=== PATIENT | female | born 1980 | race Caucasian/White ===

== ENCOUNTER → 2016-11-22 | Outpatient (REF) | payer OTHER ==
[2016-11-22 13:13] LABS: MEAN CORPUSCULAR HEMOGLOBIN 30.8 pg (27.0-33.0); MEAN CORPUSCULAR HGB CONC 32.7 g/dl (32.0-36.5); MEAN CORPUSCULAR VOLUME 94.2 fl (80.0-96.0); RED CELL DISTRIBUTION WIDTH 12.7 % (11.5-14.5); WHITE BLOOD COUNT 7.7 K/mm3 (4.0-10.0)
[2016-11-22 13:43] LABS: ALBUMIN 3.9 GM/DL (3.2-5.2); ALBUMIN/GLOBULIN RATIO 1.15 (1.00-1.93); ALKALINE PHOSPHATASE 20 U/L (45-117); ALT/SGPT 20 U/L (12-78); ANION GAP 7 MEQ/L (8-16); AST/SGOT 12 U/L (15-37); BILIRUBIN,TOTAL 0.6 MG/DL (0.2-1.0); BLOOD UREA NITROGEN 11 MG/DL (7-18); CALCIUM LEVEL 8.6 MG/DL (8.5-10.1); CARBON DIOXIDE LEVEL 28 MEQ/L (21-32); CHLORIDE LEVEL 106 MEQ/L (98-107); CHOLESTEROL LEVEL 181 MG/DL (<200); CREATININE FOR GFR 0.66 MG/DL (0.55-1.02); GLOMERULAR FILTRATION RATE > 60.0 (>60); GLUCOSE, FASTING 85 MG/DL (70-105); POTASSIUM SERUM 4.3 MEQ/L (3.5-5.1); SODIUM LEVEL 141 MEQ/L (136-145); TOTAL PROTEIN 7.3 GM/DL (6.4-8.2); TRIGLYCERIDES LEVEL 44 MG/DL (<150)
== END ==
LOC: M SFHCCLAY 07:51
PROVIDERS: ATTEND Nurse Practitioner
DX: N92.0 Excessive and frequent menstruation with regular cycle (principal); F41.1 Generalized anxiety disorder; Z82.49 Family history of ischemic heart disease and other diseases of the circulatory system

== ENCOUNTER → 2017-03-11 | Outpatient (REF) | payer OTHER ==
[~2017-03-11] MED LIST: ACYC200C8 PO; METR1TAB66 PO; NITR100C2
== END ==
LOC: M LAB REF 09:56
PROVIDERS: ATTEND Physician Assistant Medical
DX: R39.0 Extravasation of urine (principal); R30.0 Dysuria

== ENCOUNTER 2017-03-14 17:39 | Emergency (ER) | payer OTHER ==
[~2017-03-14] VITALS: Ht 162.6 cm; Wt 59.5 kg
[2017-03-14] MEDS ORDERED: NITR100C2 (17:48)
[2017-03-14] MEDS ORDERED: ACYC200C8 PO (19:54)
[2017-03-14] MEDS ORDERED: METR1TAB66 PO (19:54)
[2017-03-14 20:10] VITALS: BP 135/74
== END 2017-03-14 20:11 | disposition home or self-care (01) ==
LOC: M ED 17:39
DX: O23.591 Infection of other part of genital tract in pregnancy, first trimester (principal); O98.319 Other infections with a predominantly sexual mode of transmission complicating pregnancy, unspecified trimester; A60.09 Herpesviral infection of other urogenital tract; Z3A.01 Less than 8 weeks gestation of pregnancy

== ENCOUNTER → 2017-04-05 | Outpatient (CLI) | payer OTHER ==
[2017-04-05 19:50] LABS: BASO % 0.5 % (0.0-1.0); EOS # 0.1 K/mm3 (0.0-0.50); EOS % 0.7 % (0.0-3.0); LARGE UNSTAINED CELL # 0.1 K/mm3 (0.0-0.4); LYMPH # 1.4 K/mm3 (1.5-4.5); MEAN CORPUSCULAR HEMOGLOBIN 32.6 pg (27.0-33.0); MEAN CORPUSCULAR HGB CONC 34.6 g/dl (32.0-36.5); MEAN CORPUSCULAR VOLUME 94.3 fl (80.0-96.0); MONO # 0.4 K/mm3 (0.0-0.8); MONO % 4.1 % (0.0-5.0); NEUTROPHILS # 8.6 K/mm3 (1.8-7.7); NEUTROPHILS % 81.8 % (36.0-66.0); PLATELET COUNT, AUTOMATED 336 k/mm3 (150-450); RED CELL DISTRIBUTION WIDTH 12.8 % (11.5-14.5)
[2017-04-06 08:19] LABS: WHITE BLOOD COUNT 10.5 K/mm3 (4.0-10.0)
[2017-04-06 12:50] LABS: HBsAg Prenatal NEGATIVE (NEGATIVE)
== END ==
LOC: M SMT 13:30
PROVIDERS: ATTEND Advanced Practice Midwife
DX: Z34.81 Encounter for supervision of other normal pregnancy, first trimester (principal)

== ENCOUNTER → 2017-04-16 | Outpatient (REF) | payer OTHER | LOC: M LAB REF 13:13 | PROVIDERS: ATTEND Advanced Practice Midwife | DX: Z34.81 Encounter for supervision of other normal pregnancy, first trimester (principal) ==

== ENCOUNTER → 2017-06-20 | Outpatient (CLI) | payer OTHER ==
--- NOTE | 2017-06-20 09:41 | REP ---
Clinical: Anatomical evaluation. Comparison: None . Findings: Examination demonstrates a single live intrauterine in variable presentation. motion is identified by technologist. Placenta is noted posterior, grade 0 and placenta previa is noted. Cervix measures 3.7 cm in length and appears closed. No evidence for nuchal cord. Gestational age by current measurements 18 weeks 6 days with CHINTAN 11/15/2017 . FHR equals 141 beats per minute. BPD 4.2 cm 18 weeks 5 days HC 16.1 cm 19 weeks 0 days AC 13.6 cm 19 weeks 0 days FL 3.0 cm 19 weeks 1 day HL 2.8 cm 19 weeks 0 days HC/AC ratio 1.19 Estimated weight 274 grams ( 56 percentile). Anatomical assessment demonstrates normal structures including cranium, cavum, cerebellum/posterior fossa, nose and lips, lungs, four-chamber heart/ left ventricular outflow tract, diaphragm, stomach, cord insertion/three-vessel cord, kidneys/bladder, spine, and extremities. Small bilateral choroid plexus cysts are identified. Limited evaluation of the facial profile and right cardiac ventricular outflow tract noted. Impression: 1. Single live intrauterine in variable presentation. 2. Posterior placenta with placenta previa. 3. Anatomical limitations as described above may warrant reevaluation and follow-up. Signed by Avinash Barrera MD 06/20/2017 09:33 A
== END ==
LOC: M SMT 07:57
PROVIDERS: ATTEND Advanced Practice Midwife
DX: Z34.82 Encounter for supervision of other normal pregnancy, second trimester (principal)

== ENCOUNTER → 2017-07-23 | Outpatient (CLI) | payer OTHER ==
--- NOTE | 2017-07-24 03:19 | REP ---
Clinical: Anatomical evaluation. Comparison: 06/20/2017 . Findings: Examination demonstrates a single live intrauterine in variable presentation. motion is identified by technologist. Placenta is noted posteriorly and grade one without evidence for placenta previa or abruption. Placenta tip identified 3.8 cm from the closed internal os. Amniotic fluid volume is normal. Cervix measures 4.5 cm in length and appears closed. No evidence for nuchal cord. Gestational age by LMP 23 weeks 4 days with CHINTAN 11/16/1979 . Gestational age by current measurements 23 weeks 5 days with CHINTAN 11/14/2017 . FHR equals 139 beats per minute. Estimated weight 677 grams ( 65th percentile). Anatomical assessment demonstrates normal structures including cranium, choroid plexus, cavum, cerebellum/posterior fossa, facial features, lungs, four-chamber heart/ventricular outflow tracts, diaphragm, stomach, cord insertion/three-vessel cord, kidneys/bladder, spine, and extremities. Previously noted choroid cysts have resolved. Impression: Appropriate interval growth. In conjunction with prior examination anatomical assessment is complete and normal. Signed by Avinash Barrera MD 07/24/2017 12:11 A
== END ==
LOC: M SMT 14:32
PROVIDERS: ATTEND Specialist
DX: Z36.2 Encounter for other antenatal screening follow-up (principal); Z34.82 Encounter for supervision of other normal pregnancy, second trimester; Z3A.24 24 weeks gestation of pregnancy

== ENCOUNTER → 2017-08-01 | Outpatient (CLI) | payer OTHER ==
[2017-08-01 19:57] LABS: BASO # 0.1 10^3/uL (0.0-0.2); BASO % 0.4 % (0.0-1.0); EOS # 0.1 10^3/uL (0.0-0.50); IMMATURE GRANULOCYTE # 0.2 10^3/uL (0-0); IMMATURE GRANULOCYTE % 1.1 % (0-0); LYMPH # 1.8 10^3/uL (1.5-4.5); LYMPH % 13.1 % (24.0-44.0); MEAN CORPUSCULAR HEMOGLOBIN 31.7 pg (27.0-33.0); MEAN CORPUSCULAR HGB CONC 32.9 g/dl (32.0-36.5); MEAN CORPUSCULAR VOLUME 96.3 fl (80.0-96.0); MONO # 0.7 10^3/uL (0.0-0.8); MONO % 5.1 % (0.0-5.0); NEUTROPHILS # 11.1 10^3/uL (1.8-7.7); NEUTROPHILS % 79.3 % (36.0-66.0); PLATELET COUNT, AUTOMATED 336 10^3/uL (150-450); RED CELL DISTRIBUTION WIDTH 13.1 % (11.5-14.5)
[2017-08-02 08:39] LABS: TYPE AND SCREEN 1 1
== END ==
LOC: M WUC 15:07
DX: Z34.83 Encounter for supervision of other normal pregnancy, third trimester (principal)
CPT/HCPCS: 82950

== ENCOUNTER → 2017-10-16 | Outpatient (REF) | payer OTHER | LOC: M LAB REF 11:29 | DX: Z34.83 Encounter for supervision of other normal pregnancy, third trimester (principal) ==

== ENCOUNTER 2017-11-17 14:46 | Inpatient (IN) | payer OTHER, MEDICAID ==
[2017-11-17] MEDS ORDERED: LR 1,000 ML IV ×2 (16:24→19:42)
[2017-11-17] MEDS: PENICILLIN G POTASSIUM IV 5 MU in D5W MINI-BAG PLUS 100 ML IV (16:44)
[2017-11-17] MEDS: LACTATED RINGER'S 1000 ML IV (16:45)
[2017-11-17 16:49] LABS: HEMATOCRIT 35.2 % (36.0-47.0); HEMOGLOBIN 12.2 g/dl (12.0-15.5); MEAN CORPUSCULAR HEMOGLOBIN 32.2 pg (27.0-33.0); MEAN CORPUSCULAR HGB CONC 34.7 g/dl (32.0-36.5); MEAN CORPUSCULAR VOLUME 92.9 fl (80.0-96.0); PLATELET COUNT, AUTOMATED 270 10^3/uL (150-450); RED BLOOD COUNT 3.79 10^6/uL (4.00-5.40); WHITE BLOOD COUNT 18.7 10^3/uL (4.0-10.0)
[2017-11-17] MEDS ORDERED: OXYTOCIN DRIP 30 UNITS in APPROPRIATE DILUENT 1 EA IV (19:05)
[2017-11-17] MEDS: OXYTOCIN DRIP 30 UNITS in APPROPRIATE DILUENT 1 EA IV (19:42)
[2017-11-17] MEDS ORDERED: DIBUCAINE 1% OINTMENT 30GM TOP (19:45)
[2017-11-17] MEDS ORDERED: ONDANSETRON 4MG/2ML VIAL (J2405) IV (19:45)
[2017-11-17] MEDS ORDERED: PROMETHAZINE 25 MG TAB PO (19:45)
[2017-11-17] MEDS ORDERED: MEASLES,MUMPS,RUBELLA VACCINE INJ (MMR-II) (90707) SC (19:45)
[2017-11-17] MEDS ORDERED: IBUPROFEN 800 MG TAB PO (19:45)
[2017-11-17] MEDS ORDERED: ACETAMINOPHEN 500 MG TAB PO (19:45)
[2017-11-17] MEDS: LIDOCAINE 1% MDV 20ML VIAL INFIL (20:25)
[2017-11-17] MEDS ORDERED: PENICILLIN G POTASSIUM IV 2.5 MU in APPROPRIATE DILUENT 1 EA IV (20:45)
[2017-11-18] MEDS: PRENATAL VITAMINS CHEWABLE TABLET PO (08:33)
[2017-11-18] MEDS: DOCUSATE SODIUM 100 MG CAP PO (21:26)
[2017-11-19] MEDS: PRENATAL VITAMINS CHEWABLE TABLET PO (08:32)
[2017-11-19 10:27] LABS: FETAL SCREEN PROF. 1 1
[2017-11-19] MEDS: RHOGAM 300 MCG (1500 IU) INJ (J2790) IM (10:44)
== END 2017-11-19 13:45 | disposition home or self-care (01) | DRG 775 ==
LOC: M LDO 14:46 → M LDI 15:58 → M OBS 21:56
PROVIDERS: Obstetrics & Gynecology; Pediatrics
PROC: 10E0XZZ Delivery of Products of Conception, External Approach (ICD-10-PCS; principal; 2017-11-17)
PROC: 0HQ9XZZ Repair Perineum Skin, External Approach (ICD-10-PCS; 2017-11-17)
PROC: 30233S1 Transfusion of Nonautologous Globulin into Peripheral Vein, Percutaneous Approach (ICD-10-PCS; 2017-11-19)
DX: O48.0 Post-term pregnancy (principal); Z37.0 Single live birth; Z3A.40 40 weeks gestation of pregnancy; O99.824 Streptococcus B carrier state complicating childbirth; Z88.8 Allergy status to other drugs, medicaments and biological substances; O77.0 Labor and delivery complicated by meconium in amniotic fluid; O70.0 First degree perineal laceration during delivery

== ENCOUNTER → 2020-05-20 | Outpatient (REF) | payer OTHER ==
[~2020-05-20] MED LIST changes: +IBUP-1114 PO; +MAPA500T2 PO; +METR-265 PO; -METR1TAB66 PO; +PRENTAB9 PO
[2020-05-20 17:51] LABS: HEMATOCRIT 34.8 % (36.0-47.0); HEMOGLOBIN 11.6 g/dl (12.0-15.5); MEAN CORPUSCULAR HEMOGLOBIN 31.4 pg (27.0-33.0); MEAN CORPUSCULAR HGB CONC 33.3 g/dl (32.0-36.5); MEAN CORPUSCULAR VOLUME 94.3 fl (80.0-96.0); PLATELET COUNT, AUTOMATED 343 10^3/uL (150-450); RED BLOOD COUNT 3.69 10^6/uL (4.00-5.40)
[2020-05-20 19:10] LABS: HEPATITIS C VIRUS ABY INDEX 0.1 INDEX (<0.8); HIV 1&2 SCREEN CENTAUR NEGATIVE (NEGATIVE)
== END ==
LOC: M PLALAB 14:47
PROVIDERS: ATTEND Obstetrics & Gynecology
DX: O09.529 Supervision of elderly multigravida, unspecified trimester (principal); Z3A.00 Weeks of gestation of pregnancy not specified

== ENCOUNTER → 2020-05-20 | Outpatient (CLI) | payer OTHER | LOC: M PLALAB 14:57 | PROVIDERS: ATTEND Obstetrics & Gynecology | DX: O09.521 Supervision of elderly multigravida, first trimester (principal) ==

== ENCOUNTER → 2020-07-14 | Outpatient (CLI) | payer OTHER ==
--- NOTE | 2020-07-14 16:39 | REP ---
INDICATION: ANATOMY. Supervision of COMPARISON: None. TECHNIQUE: Transabdominal scanning. FINDINGS: Scanning through the gravid uterus demonstrates a viable single intrauterine gestation in transverse, head to the maternal left lie. motion is observed and heart rate is recorded at 147 beats per minute. A anterior placenta is seen, grade 0, without evidence of placenta previa. Amniotic fluid is subjectively normal. Closed cervical length is measured at 5.1 cm transabdominally. No extrauterine abnormality is observed. Three-vessel cord. The inferior edge of the placenta is 3.9 cm from the internal cervical os on transabdominal imaging. No anomaly is seen. The following anatomic structures are identified and felt to be sonographically unremarkable: cranium, choroid plexus, cavum, cerebellum and posterior fossa, face and profile, lungs, left and right ventricular outflow tract views, diaphragm, left-sided stomach, abdominal wall cord insertion, three-vessel umbilical cord, kidneys and bladder, spine, and upper and lower extremities. Four-chamber heart view is less than optimally achieved due to position. Biometry chart: BPD 4.6 cm, 19 weeks 6 days Head circumference 16.8 cm, 19 weeks 3 days Abdominal circumference 14.7 cm, 20 weeks 0 days Femur length 3.1 cm, 19 weeks 5 days Humeral length 3.0 cm, 20 weeks 0 days HC AC ratio normal 1.14 Cephalic index normal 0.76 Estimated weight 315 g, 0 lb old garcia oz, 76 percentile for 19 weeks 2 days IMPRESSION: Viable single intrauterine gestation at 19 weeks 6 days by today's composite sonographic criteria. CHINTAN by today's sonography December 02, 2020. No complication identified. anatomy survey complete except for less than optimally achieved 4 chamber heart view. <Electronically signed by Suraj Salmon > 07/14/20 [id number]
== END ==
LOC: M WHC 13:12
PROVIDERS: ATTEND Obstetrics & Gynecology
DX: Z34.90 Encounter for supervision of normal pregnancy, unspecified, unspecified trimester (principal); Z3A.19 19 weeks gestation of pregnancy

== ENCOUNTER → 2020-07-14 | Outpatient (REF) | payer OTHER | LOC: M SFHCWAGY 16:58 | PROVIDERS: ATTEND Obstetrics & Gynecology | DX: O09.522 Supervision of elderly multigravida, second trimester (principal) ==

== ENCOUNTER → 2020-08-11 | Outpatient (REF) | payer OTHER ==
[2020-08-11 17:39] LABS: HEMATOCRIT 35.1 % (36.0-47.0); HEMOGLOBIN 11.5 g/dl (12.0-15.5); MEAN CORPUSCULAR HEMOGLOBIN 32.2 pg (27.0-33.0); MEAN CORPUSCULAR HGB CONC 32.8 g/dl (32.0-36.5); MEAN CORPUSCULAR VOLUME 98.3 fl (80.0-96.0); PLATELET COUNT, AUTOMATED 305 10^3/uL (150-450); RED BLOOD COUNT 3.57 10^6/uL (4.00-5.40); WHITE BLOOD COUNT 13.2 10^3/uL (4.0-10.0)
== END ==
LOC: M PLALAB 13:53
PROVIDERS: ATTEND Obstetrics & Gynecology
DX: O09.522 Supervision of elderly multigravida, second trimester (principal); Z3A.23 23 weeks gestation of pregnancy
CPT/HCPCS: 36415; 82950; 85027; 86850; 86900; 86901; 87088; 87186; J2790

== ENCOUNTER → 2020-08-11 | Outpatient (CLI) | payer OTHER ==
--- NOTE | 2020-08-11 14:53 | REP ---
INDICATION: F/U ANATOMY COMPARISON: 07/14/2020 TECHNIQUE: Transabdominal obstetrical ultrasound with color Doppler evaluation. FINDINGS: Examination demonstrates a single live intrauterine in variable presentation. motion is identified by technologist. Placenta is noted anterior and grade 1 without evidence for placenta previa or abruption. Amniotic fluid volume is normal. Cervix measures 3.6 cm in length and appears closed.. Gestational age by LMP 23 weeks 2 days with CHINTAN 12/06/2020. Gestational age by current measurements 23 weeks 4 days with CHINTAN 12/04/2020. FHR equals 133 beats per minute. Estimated weight 624 grams (64thpercentile). Anatomical assessment demonstrates normal structures including cranium, facial features, cardiac ventricular outflow tracts, diaphragm/stomach, bilateral kidneys/bladder, and three-vessel cord/abdominal wall. IMPRESSION: Single live intrauterine in variable presentation demonstrating appropriate estimated weight and growth. Limited evaluation of the four-chamber heart is again noted with subtle small echogenic focus in the ventricle suggesting chordae tendineae. <Electronically signed by Avinash Barrera > 08/11/20 [id number]
== END ==
LOC: M WHC 13:56
PROVIDERS: ATTEND Obstetrics & Gynecology
DX: Z36.9 Encounter for antenatal screening, unspecified (principal); Z3A.23 23 weeks gestation of pregnancy

== ENCOUNTER → 2020-10-13 | Outpatient (CLI) | payer OTHER ==
--- NOTE | 2020-10-13 13:46 | REP ---
INDICATION: GROWTH/ELDERLY MULTIGRAVIDA COMPARISON: 08/11/2020 TECHNIQUE: Transabdominal obstetrical ultrasound with color Doppler evaluation. FINDINGS: Examination demonstrates a single live intrauterine in cephalic presentation. motion is identified by technologist. Placenta is noted anterior and grade 2 without evidence for placenta previa or abruption. Amniotic fluid volume is normal. Cervix measures 3.1 cm in length and appears closed.. Gestational age by LMP and 1st ultrasound 32 weeks 2 days with CHINTAN 12/06/2020. Gestational age by current measurements 32 weeks 5 days with CHINTAN 12/03/2020. FHR equals 153 beats per minute. Estimated weight 1980 grams (45thpercentile). AUSTIN: 16.4 cm (8.5-24.3) IMPRESSION: Advanced gestation in cephalic presentation demonstrating appropriate estimated weight and growth. <Electronically signed by Avinash Barrera > 10/13/20 [id number]
== END ==
LOC: M WHC 12:21
PROVIDERS: ATTEND Advanced Practice Midwife
DX: O09.523 Supervision of elderly multigravida, third trimester (principal); Z3A.32 32 weeks gestation of pregnancy

== ENCOUNTER → 2020-11-09 | Outpatient (REF) | payer OTHER | LOC: M SFHCWAGY 16:53 | PROVIDERS: ATTEND Advanced Practice Midwife | DX: Z36.85 Encounter for antenatal screening for Streptococcus B (principal); Z3A.36 36 weeks gestation of pregnancy ==

== ENCOUNTER → 2020-11-17 | Outpatient (CLI) | payer OTHER ==
[~2020-11-17] VITALS: Ht 160 cm; Wt 88.4 kg
--- NOTE | 2020-11-17 12:30 | IPN ---
PROGRESS NOTE DATE: 11/17/2020 SUBJECTIVE: Sangeetha is a 40-year-old 3 para 2-0-0-2. She is 37 and 2/7th weeks with an EDC of 12/06/2020 based on first trimester ultrasound. She presents to Labor and Delivery today with a report of gush of fluid last evening around 1700. She has continued any continued leakage of fluid, vaginal bleeding, and regular painful contractions. The fetus has been active. [facility] care was [facility] at [facility] in the first trimester. Her course was complicated by advanced maternal age. Her course has been appropriate throughout. OBSTETRIC HISTORY: In 07/12, a 40 week gestation, 6 pound, 7 ounce male, vaginal delivery, 11/21, 40 weeks and 3 days, 7 pound, 10 ounce female, vaginal delivery. PAST MEDICAL HISTORY: Scoliosis, back pain, childhood varicella. PAST SURGICAL HISTORY: Varicose veins in 2008 and again in 2016. FAMILY HISTORY: Heart disease, CVA. SOCIAL HISTORY: She is a former smoker. It has been 5 to 10 years, essentially last using tobacco. She denies alcohol and drug use. Denies any history of sexually transmitted infections. She denies a history of abuse. She is single, however the father of the baby is at bedside. CURRENT MEDICATIONS: vitamin. ALLERGIES: Benadryl. OBJECTIVE: She is alert and oriented x3. She is no apparent distress. heart rate is 135 with moderate variability, positive accelerations, negative decelerations, contraction occasional. Sterile speculum exam: Negative Valsalva, negative pooling, negative Nitrazine and negative fern. Sterile vaginal exam: Fingertip dilated, thick ballottable station. Temperature 98, pulse 90, respirations 16 and blood pressure is 127/64. ASSESSMENT: Intrauterine at 37 and 2/7th weeks. heart rate Category 1, not ruptured, not in labor. PLAN: Discharge the patient to home. I did review signs and symptoms of active labor, spontaneous rupture of membranes, kick counts and other danger signs to report. I reviewed access to care. She is instructed to keep her growth ultrasound that she has scheduled this afternoon and to reschedule her appointment for early next week. I have answered all of her and her partner's questions and they do request discharge home.
== END ==
LOC: M LDO 10:01
PROVIDERS: ATTEND Advanced Practice Midwife
DX: O47.1 False labor at or after 37 completed weeks of gestation (principal); Z3A.37 37 weeks gestation of pregnancy; O09.523 Supervision of elderly multigravida, third trimester
CPT/HCPCS: 59025; G0378; G0463

== ENCOUNTER → 2020-11-17 | Outpatient (CLI) | payer OTHER ==
--- NOTE | 2020-11-17 15:14 | REP ---
INDICATION: 36 WEEKS GESTATION,GROWTH. COMPARISON: 10/13/2020. TECHNIQUE: Real-time sonographic evaluation of the gravid uterus performed. FINDINGS: Estimated gestational age is37 weeks 2 days, EDC 12/06/2020. Today's measurements indicate appropriate growth. Presentation: Cephalic Placenta anterior, grade 2, without evidence of placenta previa. heart rate is recorded at 134 beats per minute. Amniotic fluid is subjectively normal. AUSTIN 14.7, normal range 7.4-24.3. Closed cervical length is measured at 3.3 cm. Biometry chart: BPD: 91 mm, 36 weeks 6 days, 44th percentile. HC: 332 mm, 37 weeks 6 days, 60th percentile AC: 329 mm, 36 weeks 6 days, 43rd percentile Femur length: 72 mm, 36 weeks 6 days, 44th percentile HC to AC ratio: 1.01, normal range 0.91-1.10. Estimated weight: 3081g, 49th percentile. IMPRESSION: Viable single intrauterine gestation as above. <Electronically signed by James Gavin > 11/17/20 [id number]
== END ==
LOC: M WHC 12:26
PROVIDERS: ATTEND Advanced Practice Midwife
DX: Z36.2 Encounter for other antenatal screening follow-up (principal); Z3A.37 37 weeks gestation of pregnancy

== ENCOUNTER 2020-12-11 18:41 | Inpatient (IN) | payer OTHER ==
[~2020-12-11] VITALS: Ht 160 cm; Wt 91.4 kg
[2020-12-11 19:03] VITALS: BP 119/69
--- NOTE | 2020-12-11 20:53 | HPEPDOC ---
Obstetrical History & Physical General Date of Admission December 11, 2020 at 20:44 History of Present Illness Patient is a 40-year-old 3 para 2 presents at 40 weeks 5 days estimated gestational age with complaints of fever, malaise and body aches. She reports a fever 101.2 earlier this afternoon. She denies any sick contacts. Patient was scheduled for induction of labor for postdates tomorrow. course only remarkable for advanced maternal age and she has been receiving antepartum testing weekly Chief Complaint: Induction of labor Information Provided By: Patient Age: 40 : 3 Livin Care Care: Good Care Dating Final EDC: December 06, 2020 Final EDC by: LMP EGA at Admission: 40 Past Medical History Past Obstetrical History #1: Past Obstetrical History: Multigravida Date of Delivery: Jul 08, 2007 Gestation: 40 Type of Delivery: Spontaneous Vaginal Del. Sex of : Male Complications: No Past Obstetrical History #2: Past Obstetrical History: Multigravida Date of Delivery: Oct 09, 2017 Type of Delivery: Spontaneous Vaginal Del. 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 BREAST: . ABDOMEN: Gravid and non-tender to touch. FETUS: Is vertex (VTX) by sterile vaginal examination (SVE), fetus is vertex (VTX) by Sandor. HEART RATE: Regular rate and rhythm. LUNGS: Clear to auscultation (CTA). Vital Signs/I&O Vital Signs Date Time Temp Pulse Resp B/P (MAP) Pulse Ox O2 Delivery O2 Flow Rate FiO2 12/11/20 19:03 98.8 102 18 119/69 (86) Laboratory Data 24H LABS Laboratory Tests 2 12/11/20 18:59: Coronavirus (COVID-19)(PCR) POSITIVEA 12/11/20 20:46: Serology Scanned Report Hepatitis B Testing Pertinent Laboratoy Data Blood Type: A- RBC Antibody Screen: Negative HIV: Negative Hepatitis B: Negative Hepatitis C: Negative Rapid Plasma Reagin: Nonreactive Rubella: Immune Chlamydia/Gonorrhea: Negative Group B Streptococcus: Negative Glucose Tolerance Test: 86 Anatomy Ultrasound Normal Anatomy: Yes Placenta Previa: No Vaginal Examination Dilation: 2cm Effacement: 50% Station: -3 Cervical Consistency: Soft Cervical Position: Anterior Presentation: Cephalic presentation Assessment Variability: Moderate Decelerations: None Tocometer Contractions: Yes Frequency: irregular Assessment/Plan Assessment 40-year-old 3 para 2 at 40 weeks 5 days estimated gestational age presents with fever and chills positive for COVID-19 Reassuring status Advanced maternal age Plan Admit and orient. Chemical Applicator and consent. Group B Streptococcus (GBS) negative. Labs and intravenous (IV) per unit protocol. Counseled on Pitocin and induction of labor (IOL). Anticipate normal spontaneous delivery (). C-S as appropriate. Labor and Delivery Counseling Patient has been thoroughly counseled in regards to induction labor. I've discu ssed medications as well as procedures performed in labor and delivery. She has been verbally consented for emergency surgery blood products anesthesia and desires to proceed with induction. Plans to initiate her induction labor with 50 g oral misoprostol. ZENIA SHARMA MD. December 11, 2020 20:53
[2020-12-11 20:58] VITALS: BP 122/70
[2020-12-11] MEDS ORDERED: miSOPROStol 50MCG 1/2 TABLET PO SCH (21:00)
[2020-12-11 21:21] LABS: HEMOGLOBIN 10.8 g/dl (12.0-15.5); MEAN CORPUSCULAR HEMOGLOBIN 32.5 pg (27.0-33.0); MEAN CORPUSCULAR HGB CONC 34.8 g/dl (32.0-36.5); MEAN CORPUSCULAR VOLUME 93.4 fl (80.0-96.0); PLATELET COUNT, AUTOMATED 231 10^3/uL (150-450); RED BLOOD COUNT 3.32 10^6/uL (4.00-5.40); WHITE BLOOD COUNT 11.4 10^3/uL (4.0-10.0)
[2020-12-11 21:28] VITALS: BP 119/60
[2020-12-11 22:26] VITALS: BP 128/68
[2020-12-11] MEDS ORDERED: BUTORPHANOL 2 MG/ML INJ (J0595) IV ONE (23:20)
[2020-12-11] MEDS ORDERED: PROMETHAZINE INJ 25 MG/ML VIAL (J2550) IV PRN (23:20)
[2020-12-11 23:29] VITALS: BP 100/60
[2020-12-11 23:48] VITALS: BP 104/55
[2020-12-12] VITALS (12 sets, daily range): BP systolic 93–121; BP diastolic 53–67
[2020-12-12] MEDS ORDERED: FENTANYL 2MCG/ML ROPIVACAINE 0.2% IN 0.9% NACL 100ML IVBAG As Ordered ONE (00:56)
[2020-12-12] MEDS ORDERED: OXYTOCIN 30 UNITS IN 0.9% NaCl 500ML IV BAG (J2590) As Ordered ONE (01:19)
[2020-12-12] MEDS ORDERED: DIBUCAINE 1% OINTMENT 30GM TOP PRN (02:35)
[2020-12-12] MEDS ORDERED: MOM 30ML SUSPENSION UDC PO PRN (02:35)
[2020-12-12] MEDS ORDERED: METHYLERGONOVINE MALEATE 0.2 MG TAB PO PRN (02:35)
[2020-12-12] MEDS ORDERED: MEASLES,MUMPS,RUBELLA VACCINE INJ (MMR-II) (90707) SC SCH (02:35)
[2020-12-12] MEDS ORDERED: ACETAMINOPHEN 500 MG TAB PO PRN (02:35)
[2020-12-12] MEDS ORDERED: ACETAMINOPHEN TAB 650MG DOSE (2X325MG) PO PRN (02:35)
[2020-12-12] MEDS ORDERED: DOCUSATE SODIUM 100MG CAPSULE PO PRN (02:35)
[2020-12-12] MEDS ORDERED: OXYTOCIN DRIP 30 UNITS in IV 1 EA IV SCH (02:35)
[2020-12-12] MEDS ORDERED: ANUSOL HC CREAM 30GM TOP PRN (02:35)
[2020-12-12] MEDS ORDERED: IBUPROFEN 600MG TAB PO PRN (02:35)
[2020-12-12] MEDS ORDERED: IBUPROFEN 800 MG TAB PO PRN (02:35)
[2020-12-12] MEDS ORDERED: RHOGAM 300 MCG (1500 IU) INJ (J2790) IM SCH (02:35)
--- NOTE | 2020-12-12 02:44 | DNPDOC ---
[facility] Delivery Note Delivery Note DATE OF DELIVERY: 12/12/2020 TIME OF : 0213 GENDER: Male. APGARS: 9 and 9. WEIGHT: 3810 grams or 8 pounds 6ounces. LACERATIONS: none ANESTHESIA: none ESTIMATED BLOOD LOSS: 200 ml COUNTS: 5 laparotomy sponges accounted for prior to after delivery. DELIVERY NOTE: On on 12/12/2020 at 0213 Mrs. Shen a 40-year-old 3 now para 3 had a spontaneous vaginal delivery of a liveborn male infant Apgars 9 and 9 weight was 3010 g 8 lbs. 6 oz. Head was delivered occiput posterior (OP). There was a nuchal cord which was mainly reduced, followed by delivery of the shoulders and corpus. Infant was handed to mom with a good cry. Cord was clamped times two and was cut by support person under my direction. Placenta was then drained and delivered grossly intact. A premixed bag of 500 mL of normal saline with 30 units of Pitocin was then bolused along with uterine massage until the uterus was firm. On inspection, cervix, vagina, perineum was grossly intact and hemostatic. Mom and baby in recovery on stable condition. The couples decided to name the son Jayden. ZENIA SHARMA MD. December 12, 2020 02:44
[2020-12-12] MEDS: PRENATAL VITAMINS CHEWABLE TABLET PO SCH (08:48)
[2020-12-13 02:00] VITALS: BP 112/65
[2020-12-13 06:03] VITALS: BP 99/62
[2020-12-13] MEDS: PRENATAL VITAMINS CHEWABLE TABLET PO SCH (09:00)
[2020-12-13] MEDS: ASPIRIN 81MG ENTERIC TABLET PO SCH (09:34)
--- NOTE | 2020-12-13 11:47 | IPNPDOC ---
Progress Note Date of Service: December 13, 2020 Day#: 1 Progress Note SUBJECT: Sangeetha is a 40 year-old female who is now a who [facility] and delivery with complaints of a fever and malaise. She tested positive for COVID and was induced due to being term at 40.5 weeks gestation. She received Cytotec and IV Pitocin for induction. She had a vaginal delivery of a living male. She is currently and the baby does stay in the isolette when not nursing. She reports a cough but denies SOB or fever. She has been eating a regular diet without issues, voiding and ambulating without symptoms. OBJECTIVE: VITAL SIGNS: Within normal limits, afebrile. Alert and oriented times three. Breath sounds clear to auscultation. Abdomen: Fundus firm at U-1. Soft, NTTP. Minimal lochia. ASSESSMENT: [Day 1 , COVID positive PLAN: 1. Continue supportive nursing care. 2. Start ASA 81 mg daily until 6 weeks for DVT prophylaxis related to and diagnosis of COVID. 3. Anticipate discharge to home tomorrow. VS, I&O, 24H, Fishbone Vital Signs/I&O Vital Signs Date Time Temp Pulse Resp B/P (MAP) Pulse Ox O2 Delivery O2 Flow Rate FiO2 12/13/20 06:03 96.9 65 17 99/62 (74) 96 Room Air JUANPABLO GREEN CNM December 13, 2020 11:46
[2020-12-13 15:30] VITALS: BP 103/62
[2020-12-13 20:00] VITALS: BP 112/70
[2020-12-14 05:45] VITALS: BP 112/63
[2020-12-14] MEDS ORDERED: ASPI-551 PO (08:40)
[2020-12-14] MEDS ORDERED: IBUP80TA PO (08:40)
[2020-12-14] MEDS ORDERED: ACET-683 PO (08:40)
[2020-12-14] MEDS: PRENATAL VITAMINS CHEWABLE TABLET PO SCH (08:54)
[2020-12-14] MEDS: ASPIRIN 81MG ENTERIC TABLET PO SCH (08:54)
== END 2020-12-14 11:40 | disposition home or self-care (01) | DRG 805 ==
LOC: M LDO 18:41 → M LDI 20:44 → M OBS 12-12 04:10
PROVIDERS: ADMIT Obstetrics & Gynecology; ATTEND Obstetrics & Gynecology
PROC: 3E0P7GC Introduction of Other Therapeutic Substance into Female Reproductive, Via Natural or Artificial Opening (ICD-10-PCS; 2020-12-11)
PROC: 10E0XZZ Delivery of Products of Conception, External Approach (ICD-10-PCS; principal; 2020-12-12)
DX: O98.52 Other viral diseases complicating childbirth (principal); Z37.0 Single live birth; U07.1 COVID-19; Z3A.40 40 weeks gestation of pregnancy; O48.0 Post-term pregnancy; O69.81X0 Labor and delivery complicated by cord around neck, without compression, not applicable or unspecified; O09.523 Supervision of elderly multigravida, third trimester

== ENCOUNTER → 2024-01-04 | Outpatient (REF) | payer OTHER ==
[~2024-01-04] MED LIST changes: +ACET-683 PO; +ASPI-551 PO; +IBUP80TA PO
[2024-01-04 19:56] LABS: ALBUMIN 4.1 G/DL (3.2-5.2); ALKALINE PHOSPHATASE 31 U/L (46-116); ALT/SGPT 22 U/L (7.0-40); AST/SGOT 10 U/L (<34); BILIRUBIN,DIRECT < 0.1 MG/DL (<0.4); BILIRUBIN,TOTAL 0.4 MG/DL (0.3-1.2); TOTAL PROTEIN 7.1 G/DL (5.7-8.2)
== END ==
LOC: M LAB REF 19:27
PROVIDERS: ATTEND Registered Nurse
DX: B35.1 Tinea unguium (principal); Z79.899 Other long term (current) drug therapy

== ENCOUNTER → 2024-02-11 | Outpatient (CLI) | payer OTHER ==
[2024-02-11 11:44] LABS: ALBUMIN 3.8 G/DL (3.2-5.2); ALKALINE PHOSPHATASE 27 U/L (46-116); ALT/SGPT 14 U/L (7.0-40); AST/SGOT 9 U/L (<34); BILIRUBIN,DIRECT < 0.1 MG/DL (<0.4); BILIRUBIN,TOTAL 0.3 MG/DL (0.3-1.2); TOTAL PROTEIN 6.8 G/DL (5.7-8.2)
== END ==
LOC: M WUC 08:24
PROVIDERS: ATTEND Registered Nurse
DX: B35.1 Tinea unguium (principal); Z79.899 Other long term (current) drug therapy

== ENCOUNTER → 2024-03-17 | Outpatient (CLI) | payer OTHER ==
[2024-03-17 17:49] LABS: ALBUMIN 3.9 G/DL (3.2-5.2); BILIRUBIN,DIRECT 0.1 MG/DL (<0.4); BILIRUBIN,TOTAL 0.5 MG/DL (0.3-1.2); TOTAL PROTEIN 7.4 G/DL (5.7-8.2)
== END ==
LOC: M WUC 14:36
PROVIDERS: ATTEND Registered Nurse
DX: B35.1 Tinea unguium (principal)

== ENCOUNTER → 2024-06-30 | Outpatient (CLI) | payer OTHER | LOC: M PLAIMG 14:05 | PROVIDERS: ATTEND Ophthalmology | DX: S05.11XA Contusion of eyeball and orbital tissues, right eye, initial encounter (principal); W18.30XA Fall on same level, unspecified, initial encounter; Y92.009 Unspecified place in unspecified non-institutional (private) residence as the place of occurrence of the external cause ==

== ENCOUNTER 2025-02-24 20:29 | Emergency (ER) | payer OTHER ==
[~2025-02-24 20:29] MED LIST changes: -DOXY-441 PO
[2025-02-24 20:34] VITALS: BP 135/72; TEMP 98; O2SAT 100
[2025-02-24] MEDS: DOXYCYCLINE HYCLATE 100 MG TABLET PO ONE (21:01)
[2025-02-24] MEDS ORDERED: DOXY-441 PO (21:04)
[2025-02-24 21:17] LABS: BASO # 0.0 10^3/uL (0.0-0.2); BASO % 0.4 % (0.0-1.0); EOS # 0.1 10^3/uL (0.0-0.5); EOS % 1.0 % (0.0-3.0); LYMPH # 2.3 10^3/uL (1.5-5.0); LYMPH % 22.7 % (24.0-44.0); MONO # 0.6 10^3/uL (0.0-0.8); MONO % 5.5 % (2.0-8.0); NEUTROPHILS # 7.1 10^3/uL (1.5-8.5); NEUTROPHILS % 70.2 % (36.0-66.0); PLATELET COUNT, AUTOMATED 310 10^3/uL (150-450)
== END 2025-02-24 21:21 | disposition home or self-care (01) ==
LOC: M ED 20:29
DX: L03.116 Cellulitis of left lower limb (principal); Z88.8 Allergy status to other drugs, medicaments and biological substances

== ENCOUNTER → 2025-02-24 | Outpatient (REF) | payer OTHER ==
[~2025-02-24] MED LIST changes: +DOXY-441 PO
== END ==
LOC: M LAB REF 17:59
PROVIDERS: ATTEND Registered Nurse
DX: R76.0 Raised antibody titer (principal)